=== PATIENT | female | born 1960 | race Caucasian/White ===

== ENCOUNTER 2016-09-16 22:31 | Emergency (ER) | payer BC ==
--- NOTE | ~2016-09-16 | CT71 ---
[facility] A Service of [facility] & [facility] RADIOLOGY TEXT RESULTS PATIENT: EYAD NARAYAN LOCATION: [facility] : 58 UNIT #: [id number] AGE: [address]: Wilber Dickinson DO SEX: F ORDER DR: [id number] [facility] [place] [address] [place], [place] [address] [id number] E MR#: [id number] Acc #: [id number] NAME: EYAD NARAYAN : 1960 SEX: F STUDY DATE/TIME: 09/17/2016 1:35 UNIT: [facility] ROOM: STUDY DESCRIPTION: CT Head Wo Contrast Attending Physician: Wilber Dickinson D.O. Ordering Physician: Wilber Dickinson D.O. Primary Care Physician: Rama Francis Aprn MEDICAL IMAGING REPORT This report is preliminary unless electronic signature is present EXAM CT scan of the head without contrast INDICATIONS Lightheadedness and headache for 2 days. TECHNIQUE Axial noncontrast images were obtained from the skull base to the vertex. This CT exam was performed with one or more of the following radiation dose reduction techniques: Automatic exposure control, adjustment of mA and/or kV according to patient size, and iterative reconstruction. FINDINGS Ventricular size and configuration are normal. There is no evidence of acute infarct or hemorrhage. There are no extraaxial fluid collections. No mass lesion or mass effect is seen. There are no skull fractures. IMPRESSION Normal noncontrast head CT. Dictated by... Joshua Savgae M.D. THIS IS AN ELECTRONICALLY VERIFIED REPORT Joshua Savage M.D. at 09/17/2016 5:51 AM ZKA/[place] TD: 09/17/2016 03:25 JOB #: [id number] MEDICAL IMAGING REPORT Page 1 of 1 COPY
--- NOTE | ~2016-09-16 | EKG ---
PATIENT: EYAD NARAYAN UNIT #: [id number] Ventricular Rate: 83 BPM Atrial Rate: 83 BPM P-R Interval: 152 ms QRS Duration: 78 ms Q-T Interval: 480 ms QTC Calculation(Bezet): 564 ms P Haines: 41 degrees Calculated R Haines: 23 degrees Calculated T Haines: 39 degrees Diagnosis Line: Normal sinus rhythm Diagnosis Line: Possible Left atrial enlargement Diagnosis Line: Nonspecific T wave abnormality Diagnosis Line: Abnormal ECG Diagnosis Line: When compared with ECG of 15-SEP-2015 00:10, Diagnosis Line: QT has lengthened Diagnosis Line: Confirmed by DAMARIS NEFF MD ([id number]) on Diagnosis Line: 09/17/2016 7:19:17 AM INTERPRETING : RA
--- NOTE | ~2016-09-16 | CT2 ---
[facility] A Service of [facility] RADIOLOGY TEXT RESULTS PATIENT: EYAD NARAYAN LOCATION: [facility] : 58 UNIT #: [id number] AGE: [address]: Wilber Dickinson DO SEX: F ORDER DR: [id number] [place] [id number] [place], [place] [address] [id number] E MR#: [id number] Acc #: [id number] NAME: EYAD NARAYAN : 1960 SEX: F STUDY DATE/TIME: 09/17/2016 1:43 UNIT: [facility] ROOM: STUDY DESCRIPTION: CT Abd and Pelv W Cont Attending Physician: Wilber Dickinson D.O. Ordering Physician: Wilber Dickinson D.O. Primary Care Physician: Rama Francis Aprn MEDICAL IMAGING REPORT This report is preliminary unless electronic signature is present EXAM CT abdomen and pelvis with contrast INDICATIONS Abdomen pain since this morning with nausea and vomiting. COMPARISON None. TECHNIQUE The patient was given 100 mL of Isovue-370 and axial 5-mm images were obtained through the abdomen and pelvis. This CT exam was performed with one or more of the following radiation dose reduction techniques: Automatic exposure control, adjustment of mA and/or kV according to patient size, and iterative reconstruction. FINDINGS The lung bases are clear. The liver shows diffuse fatty change. The gallbladder shows some small, calcified stones and otherwise appears normal. The spleen, pancreas, adrenal glands and kidneys are normal in appearance except for a nonobstructing 6-mm stone in the lower pole of the left kidney. There is a 3.8 cm duodenal diverticulum. The appendix is normal. The rest of the bowel is normal. The uterus, adnexal regions and bladder are normal. The bones are unremarkable. IMPRESSION 1. Normal appendix. 2. Nonobstructing 6-mm stone in the lower-pole left kidney. 3. 3.8 cm duodenal diverticulum. 4. Gallstones. 5. Fatty liver. 6. Otherwise, normal. [facility] A Service of [facility] RADIOLOGY TEXT RESULTS PATIENT: EYAD NARAYAN LOCATION: [facility] : 58 UNIT #: [id number] AGE: [address]: Wilber Dickinson DO SEX: F ORDER DR: Dictated by... Joshua Savage M.D. THIS IS AN ELECTRONICALLY VERIFIED REPORT Joshua Savage M.D. at 09/17/2016 5:51 AM ZAK/[place] TD: 09/17/2016 03:29 JOB #: [id number] MEDICAL IMAGING REPORT Page 1 of 1 COPY
[2016-09-16 21:17] LABS: BASOPHIL# 0.1 X10e3 (0-0.3); BASOPHIL% 1.2 % (0-2.5); EOSINOPHIL# 0.2 X10e3 (0-0.7); EOSINOPHIL% 2.2 % (0.0-7.0); HEMOGLOBIN 12.6 gm/dL (12.0-16.0); LYMPHOCYTE# 3.1 X10e3 (1.0-3.5); LYMPHOCYTE% 38.6 % (17.0-45.0); MEAN CELL VOLUME 89.4 FL (83-96); MEAN CORPUSCULAR HEMOGLOBIN 30.4 PG (28-34); MEAN PLATELET VOLUME 7.5 FL (6.5-11.5); MONOCYTE# 0.7 X10e3 (0-1.0); MONOCYTE% 8.9 % (3.0-12.0); NEUTROPHIL# 3.9 X10e3 (1.5-7.1); NEUTROPHIL% 49.1 % (40-75); PLATELET COUNT 315 X10e3 (140-420); RED BLOOD COUNT 4.14 X10e (3.90-5.30); RED CELL DISTRIBUTION WIDTH 12.7 % (11.0-15.5)
[2016-09-16 21:19] LABS: DIFF IND NO
[2016-09-16 21:42] LABS: ALBUMIN SERUM 4.2 g/dL (3.5-5.0); BILIRUBIN, DIRECT 0.1 mg/dL (0.0-0.2); BILIRUBIN,INDIRECT 0.6 mg/dL (0.0-0.9); BILIRUBIN,TOTAL 0.7 mg/dL (0.2-2.0); BUN/CREATININE RATIO 23.33; CALCIUM SERUM 9.4 mg/dL (8.4-10.2); CREATININE SERUM 0.6 mg/dL (0.6-1.4); GLOM FILT RATE Estimated 101.2 mL/min (>60); POTASSIUM 3.4 mmol/L (3.5-5.1); PROTEIN TOTAL SERUM 7.5 g/dL (6.0-8.3)
[2016-09-16 22:09] LABS: URINE SOURCE CLEAN CATCH
[2016-09-16 22:20] LABS: URINE APPEARANCE CLEAR; URINE BILIRUBIN NEG (NEG); URINE BLOOD NEG (NEG); URINE COLOR YELLOW; URINE GLUCOSE 100 MG/DL (NEG); URINE KETONE NEG (NEG); URINE LEUKOCYTE ESTERASE 1+ (NEG); URINE NITRATE NEG (NEG); URINE PH 5.5 (5-8); URINE PROTEIN NEG (NEG); URINE SPECIFIC GRAVITY 1.014 (1.003-1.035); URINE UROBILINOGEN 0.2 MG/DL (NEG)
[2016-09-16 22:24] LABS: URBCS1 AUWI 0-2 /[HPF] (0-2); URINE BACTERIA AUWI NEG (NEGATIVE); URINE SQUAMOUS EPITHELIAL CELL NONE SEEN /[HPF]
[2016-09-16 22:27] LABS: CULTURE INDICATED? NO
[~2016-09-16 22:31] MED LIST: VOLTAREN75 MG PO
[2016-09-16 22:48] LABS: POC - CKMB 1.3 ng/mL (0.0-7.9); POC - TROPONIN <0.05 ng/mL (<=0.05)
[2016-09-16 23:07] LABS: POC - CKMB <1.0 ng/mL (0.0-7.9); POC - TROPONIN <0.05 ng/mL (<=0.05)
[2017-01-05] MEDS ORDERED: AMLODIPINE BESYL5 MG PO (15:59)
[2017-01-05] MEDS ORDERED: OMEPRAZOLE20 M1 PO (16:00)
[2017-01-05] MEDS ORDERED: TRIGLIDE160 M1 PO (16:01)
[2017-01-05] MEDS ORDERED: EFFEXOR XR150 MG PO (16:01)
[2017-01-05] MEDS ORDERED: VITAMIN B122500 MCG (16:02)
[2017-01-05] MEDS ORDERED: FISH OIL 1,0001 EAC4 (16:02)
== END 2016-09-17 02:25 | disposition home or self-care (01) ==
LOC: CED 22:31
PROVIDERS: Emergency Medicine
DX: K80.20 Calculus of gallbladder without cholecystitis without obstruction (principal); I10 Essential (primary) hypertension; F32.9 Major depressive disorder, single episode, unspecified; F17.210 Nicotine dependence, cigarettes, uncomplicated
CPT/HCPCS: 36415; 70450; 74177; 80048; 80076; 81003; 82150; 82553; 83690; 84484; 84703; 85025; 93005; 96361; 96374; 96375; 99284; J2405; Q9967

== ENCOUNTER → 2016-11-20 | Outpatient (CLI) | payer BC ==
[~2016-11-20] MED LIST changes: +AMLODIPINE BESYL5 MG PO; +EFFEXOR XR150 MG PO; +FISH OIL 1,0001 EAC4; +OMEPRAZOLE20 M1 PO; +TRIGLIDE160 M1 PO; +VITAMIN B122500 MCG
--- NOTE | ~2016-11-20 | NM21 ---
[facility] A Service of [facility] & [facility] RADIOLOGY TEXT RESULTS PATIENT: EYAD NARAYAN LOCATION: [facility] : 58 UNIT #: [id number] AGE: [address]: Dwayne Patrick MD SEX: F ORDER DR: [id number] [facility] [address] [place], [place] [address] [id number] O MR#: [id number] Acc #: [id number] NAME: EYAD NARAYAN : 1960 SEX: F STUDY DATE/TIME: 11/20/2016 7:50 UNIT: [facility] ROOM: STUDY DESCRIPTION: WI Hepatobiliary W GB Attending Physician: Dwayne Patrick M.D. Referring Physician: Dwayne Patrick M.D. Ordering Physician: Dwayne Patrick M.D. Primary Care Physician: Valencia Rose M.D. MEDICAL IMAGING REPORT This report is preliminary unless electronic signature is present EXAM HIDA scan, 11/20/2016. HISTORY Nausea, vomiting, abdominal pain and fatty liver. Symptoms began 09/17/2016. Abnormal CT scan 09/17/2016 demonstrating gallstones. FINDINGS The patient received intravenous injection of 5.64 mCi of technetium-99m tagged Choletec for hepatobiliary imaging. There is homogeneous distribution of the radiotracer throughout the liver. Gallbladder activity was seen by 60 minutes postinjection of the radiopharmaceutical. IMPRESSION Normal HIDA scan. Dictated by... Vince Frank M.D. THIS IS AN ELECTRONICALLY VERIFIED REPORT Vince Frank M.D. at 11/20/2016 5:04 PM KRT/[place] TD: 11/20/2016 12:55 JOB #: [id number] MEDICAL IMAGING REPORT Page 1 of 1 COPY
== END | disposition home or self-care (01) ==
LOC: CNUC 06:42
DX: R93.5 Abnormal findings on diagnostic imaging of other abdominal regions, including retroperitoneum (principal)
CPT/HCPCS: 78226; A9537

== ENCOUNTER → 2017-01-06 | Day surgery (SDC) | payer BC ==
--- NOTE | ~2017-01-06 | OR ---
Unit #: [id number] #: [id number] Patient: EYAD NARAYAN [id number] [address] [place], [place] [address] [id number] O MR#: [id number] NAME: EYAD NARAYAN ROOM: Date of Procedure: 01/06/2017 Admission Date: 01/06/2017 Surgeon: Dwayne Patrick M.D. : 1960 Attending Physician: Dwayne Patrick M.D. Primary Care Physician: Valencia Rose M.D. OPERATIVE REPORT PREOPERATIVE DIAGNOSES The patient has presented with history of gastroesophageal reflux. In addition, she has intermittent history of nausea and vomiting and has couple of episodes during which she felt very sick. She also needs colorectal cancer screening. PROCEDURES PERFORMED Upper gastrointestinal endoscopy and biopsy as well as colonoscopy with polypectomy. POSTOPERATIVE DIAGNOSES For upper endoscopy: The patient had grade 1 distal erosive esophagitis. Otherwise, examination was normal up to third part of duodenum. For colonoscopy: There were two sessile polyps, the largest of these was 2 cm polyp in the transverse colon removed using snare polypectomy. The second polyp was smaller in the sigmoid colon, it was diminutive and was lost to suction. The patient also had moderate diverticulosis of the sigmoid and descending colon and small internal hemorrhoids. Rest of the examination up to cecum and terminal ileum was normal. RECOMMENDATIONS Increase the dose of omeprazole from 20 mg p.o. daily to 40 mg p.o. daily. The patient will be followed up in the office in 6 to 8 weeks' time. If she is still symptomatic, gallbladder studies will be needed. She also needs a repeat colonoscopy in 5 years. SEDATION USED MAC. DESCRIPTION OF PROCEDURE Following detailed explanation of the potential risks and complications of an upper endoscopy and a colonoscopy, namely perforation, bleeding, and complication related to sedation, the patient was brought to GI lab and laid in the left lateral decubitus position. Lubricated tip of the Olympus video upper endoscope was passed through the bite block into the proximal esophagus under direct vision. The entire esophageal mucosa was examined and the patient was noted to have grade 1 distal erosive esophagitis. The scope was then advanced into the gastric cavity and the latter was insufflated. Mucosa of the fundus, body, and antrum was examined and appeared unremarkable. Pylorus was intubated with visualization of the normal duodenal bulb and second and third part of the Unit #: [id number] #: [id number] Patient: EYAD NARAYAN. Upon withdrawal and retroflexion; incisura, cardia, and greater curve was examined and a biopsy was obtained from the antrum for CLOtest. The scope was then withdrawn in the distal esophagus. Entire esophageal mucosa was examined all the way up to pharynx. No additional findings were noted. The examination table was then turned by 180 degrees and the patient was positioned for a colonoscopy. A digital rectal examination was performed, which was normal. Lubricated tip of the Olympus video colonoscope was inserted through the anus and advanced under direct vision. The scope was advanced past rectosigmoid into descending colon. Multiple medium-sized diverticula were noted in this area. The scope tip was then navigated all the way up to cecum with visualization of the ileocecal valve and the appendiceal orifice. Preparation was excellent with good visualization and photodocumentation was obtained. Last few inches of the terminal ileum were also visualized after intubation of the ileocecal valve and appeared normal. Successive segments of the colonic mucosa were examined upon withdrawal. The patient was noted to have a large sessile polyp in the transverse colon. This was about 2 cm in size. It was removed using snare cautery polypectomy. A second smaller diminutive polyp was removed from the sigmoid colon, but was lost to suction. No additional polyps were noted. Other than the diverticulosis in the left side, the patient also noted to have small internal hemorrhoids at anal verge. The scope was then withdrawn and the patient returned to the recovery area. She tolerated the procedure without any postprocedure complications. Dictated by... Carole Sy TD: 01/06/2017 16:48 JOB #: [id number] OPERATIVE REPORT Page 1 of 1 X Dwayne Patrick MD X PROCEDURE OPERATIVE NOTE
== END | disposition home or self-care (01) ==
LOC: COPS 12:20
DX: Z12.11 Encounter for screening for malignant neoplasm of colon (principal); D12.3 Benign neoplasm of transverse colon; K57.30 Diverticulosis of large intestine without perforation or abscess without bleeding; K64.8 Other hemorrhoids; K21.0 Gastro-esophageal reflux disease with esophagitis; F17.210 Nicotine dependence, cigarettes, uncomplicated; Z79.899 Other long term (current) drug therapy; Z98.51 Tubal ligation status; Z98.890 Other specified postprocedural states
CPT/HCPCS: 87077; 88305; J2250